=== PATIENT | female | born 1960 | race African-American/Black ===

== ENCOUNTER 2016-11-21 16:35 | Emergency (ER) | payer MEDICAID ==
[~2016-11-21] VITALS: Ht 160 cm; Wt 95.3 kg
[2016-11-21 16:40] VITALS: BP 138/82; PULSE 85; RESP 19; TEMP 97.6; O2SAT 100
--- NOTE | 2016-11-21 16:40 | NUR ---
Pt report received from SARAH Rand. Pt c/o Left abdominal pain that radiates to her left back x 1 day. Pt states "I think my diverticulitis is flaring up again."
--- NOTE | 2016-11-21 16:40 | NUR ---
Patient triaged and placed in waiting room. VSS and patient appears in no acute distress at this time. Accompanied by SELF, awaiting available bed, and MD notified of need for MSE.
[2016-11-21] MEDS ORDERED: ONDANSETRON HCL 4 MG/2 ML VIAL IVP ONE (17:45)
[2016-11-21] MEDS ORDERED: NACL 0.9% 1,000 ML IV ONE (17:45)
[2016-11-21] MEDS ORDERED: MORPHINE 4 MG/ML INJ. SYRINGE IVP ONE (17:45)
[2016-11-21 17:56] LABS: PROTHROMBIN TIME 10.8 SECS (9.5-12.5)
[2016-11-21 17:57] LABS: CALCIUM 9.3 mg/dL (8.4-11.0); CREATININE 0.7 mg/dL (0.55-1.30); POTASSIUM 3.6 mmol/L (3.5-5.1)
[2016-11-21 17:59] LABS: EOSINOPHILS # (AUTO) 0.1 K/uL (0.0-0.4); EOSINOPHILS % (AUTO) 1.4 % (0.0-4.0); LYMPHOCYTES # (AUTO) 2.3 K/uL (1.0-5.5); LYMPHOCYTES % (AUTO) 31.9 % (20.5-51.5); MEAN CORPUSCULAR VOLUME 91 fL (79.0-98.0); MONOCYTES # (AUTO) 0.6 K/uL (0.0-1.0); NEUTROPHILS # (AUTO) 4.1 K/uL (1.8-7.7); WHITE BLOOD COUNT (AUTO) 7.1 K/uL (4.8-10.8)
--- NOTE | 2016-11-21 18:00 | NUR ---
Pt to CT via stretcher.
[2016-11-21 18:01] LABS: TOTAL BILIRUBIN 0.3 mg/dL (0.0-1.0)
[2016-11-21 18:02] LABS: ALBUMIN 3.8 g/dL (3.4-4.8); TOTAL PROTEIN, SERUM 8.7 g/dL (6.4-8.3)
[2016-11-21 18:04] LABS: BASOPHILS % (AUTO) 0.4 % (0.0-2.0); HEMATOCRIT 41.8 % (36-48); HEMOGLOBIN 14.2 g/dL (12.0-16.0); MEAN CORPUSCULAR HEMOGLOBIN 31 pg (27-31); MEAN CORPUSCULAR HGB CONC 34 % (32-36); MONOCYTES % (AUTO) 8.3 % (1.7-9.3); PLATELET COUNT (AUTO) 302 K/uL (130-430); RED BLOOD CELL COUNT(AUTO) 4.62 MIL/uL (4.2-6.2); RED CELL DISTRIBUTION WIDTH 11.9 % (9.0-15.0)
--- NOTE | 2016-11-21 18:15 | NUR ---
Pt returns from CT.
--- NOTE | 2016-11-21 19:01 | NUR ---
No needs verbalized at this time.
--- NOTE | 2016-11-21 19:20 | NUR ---
Resumed care to patient. No acute distress or SOB noted at this time. Pain level 1/10. No needs at this time, verbalized that she wants to go home. Will continue to monitor.
[2016-11-21 19:42] VITALS: BP 135/80; PULSE 88; RESP 19; TEMP 97.5; O2SAT 99
--- NOTE | 2016-11-21 19:42 | NUR ---
Patient given written and verbal discharge instructions and verbalizes understanding. ER MD discussed with patient the results and treatment provided. Patient in stable condition. No acute distress or SOB upon discharge. ID arm band removed. IV catheter removed intact and dressing applied, no active bleeding. Rx of Cipro, Zofran, Flagyl and Tylenol given. Patient educated on pain management and to follow up with PMD. Pain Scale 1/10. Opportunity for questions provided and answered.
== END 2016-11-21 19:42 | disposition home or self-care (01) ==
LOC: SED 16:35
DX: R10.9 Unspecified abdominal pain (principal); R19.7 Diarrhea, unspecified; N20.0 Calculus of kidney
CPT/HCPCS: 36415; 74176; 80053; 83690; 84484; 85025; 85610; 85730; 93005; 96361; 96374; 96375; 99285; J2270; J2405; J7030